=== PATIENT | female | born 1950 ===

== ENCOUNTER 2017-10-20 12:30 | Inpatient (IN) | payer OTHER ==
[~2017-10-20] VITALS: Ht 154.9 cm; Wt 77.1 kg
[2017-10-20] MEDS ORDERED: METOPROLOL SUCC50 MG PO (14:28)
[2017-10-20] MEDS ORDERED: DIOVAN40 MG PO (14:28)
[2017-10-20] MEDS ORDERED: NORVASC2.5 MG PO (14:29)
[2017-10-20] MEDS ORDERED: CARDURA1 MG PO (14:29)
[2017-10-20] MEDS ORDERED: ZANTAC150 MG PO (14:29)
[2017-10-23] MEDS ORDERED: DOCUSATE SODIU100 MG PO (12:04)
[2017-10-23] MEDS ORDERED: PERCOCET 5-3251 EACH PO (12:05)
[2017-10-23] MEDS ORDERED: CLONAZEPAM1 MG PO (12:05)
== END 2017-10-24 15:13 | disposition home or self-care (01) | DRG 472 ==
LOC: PED 10-23 04:55 → O/R 10-23 04:55 → SURG 10-23 07:00 → PED 10-23 13:40
PROVIDERS: Orthopaedic Surgery Orthopaedic Surgery of the Spine
PROC: 0RT30ZZ Resection of Cervical Vertebral Disc, Open Approach (ICD-10-PCS; 2017-10-23)
PROC: 07DS3ZZ Extraction of Vertebral Bone Marrow, Percutaneous Approach (ICD-10-PCS; 2017-10-23)
PROC: 0RG20A0 Fusion of 2 or more Cervical Vertebral Joints with Interbody Fusion Device, Anterior Approach, Anterior Column, Open Approach (ICD-10-PCS; principal; 2017-10-23 07:00)
DX: M47.12 Other spondylosis with myelopathy, cervical region (principal); M50.023 Cervical disc disorder at C6-C7 level with myelopathy; E11.9 Type 2 diabetes mellitus without complications; I10 Essential (primary) hypertension; R26.89 Other abnormalities of gait and mobility; M62.81 Muscle weakness (generalized)